=== PATIENT | male | born 1950 | race Caucasian/White ===

== ENCOUNTER 2017-01-08 11:35 | Emergency (ER) | payer MEDICARE ==
[2017-01-08 11:49] VITALS: BP 139/79
[2017-01-08] MEDS ORDERED: methylPREDNISolone 125 MG* 2 ML VIAL IM ONE (11:49)
[2017-01-08] MEDS ORDERED: diPHENhydraMINE PO* 50 MG PO ONE (11:49)
--- NOTE | 2017-01-08 12:16 | UC ---
Skin Complaint HPI - HPI Summary HPI Summary: 66 year old male presents with bee sting on the head and the hand at 1100 and has history of bee allergy in the past he had some swelling in his throat but he did have bee sting 4 mo in the knee and no reaction or breathing concerns. No breathing issues right now. No meds besides topical benadryl which not helping - History of Current Complaint Chief Complaint: UCAllergicReaction Time Seen by Provider: 01/08/17 11:39 Stated Complaint: BEE STING-ALLERGIC Hx Obtained From: Patient, Family/Costume Specialist Onset/Duration: Sudden Onset Skin Exposure Onset/Duration: Minutes Ago Associated Signs & Symptoms: Positive: Negative - Allergy/Home Medications Allergies/Adverse Reactions: Allergies Allergy/AdvReac Type Severity Reaction Status Date / Time Bee Venom Allergy Swelling Verified 01/08/17 11:43 Home Medications: Home Medications Aspirin [Aspirin 81 MG TAB] 81 mg PO DAILY 01/08/17 [History Confirmed 01/08/17] Ezetimibe TAB* [Zetia TAB*] 10 mg PO DAILY 01/08/17 [History Confirmed 01/08/17] Sertraline HCl [Zoloft] 50 mg PO DAILY 01/08/17 [History Confirmed 01/08/17] Review of Systems Skin: Rash All Other Systems Reviewed And Are Negative: Yes PMH/Surg Hx/FS Hx/Imm Hx Previously Healthy: Yes Endocrine History: Dyslipidemia Psychological History: Anxiety - Surgical History Surgical History: Yes Surgery Procedure, Year, and Place: wrist - Social History Occupation: Retired Lives: With Family Alcohol Use: Occasionally Substance Use Type: None Smoking Status (MU): Never Smoked Tobacco Physical Exam Triage Information Reviewed: Yes Appearance: Well-Appearing, No Pain Distress, Well-Nourished Vital Signs: Initial Vital Signs Temp 98.6 F 01/08/17 11:45 Pulse 72 01/08/17 11:45 Resp 16 01/08/17 11:45 BP 139/79 01/08/17 11:45 Pulse Ox 98 01/08/17 11:45 Vital Signs Reviewed: Yes Eye Exam: Normal ENT Exam: Normal Dental Exam: Normal Neck exam: Normal Neck: Positive: 1 Respiratory Exam: Normal Respiratory: Positive: Chest non-tender, Lungs clear, Normal breath sounds, No respiratory distress. Negative: Crackles, Rhonchi, Stridor, Wheezing Cardiovascular Exam: Normal Abdominal Exam: Normal Musculoskeletal Exam: Normal Neurological Exam: Normal Psychological Exam: Normal Skin Exam: Normal Skin: Positive: Other - erythema and indurated red area on the scalp approx 3x4 cm and on the left hang at the base of the thumb approx 2x1 cm no discharge no streaking Course/Dx - Course Course Of Treatment: Benaryl and steroids at this time no acute reaction / no need for epi -- given new script and advised to have some one else drive home he is aware of the risks after taking benadryl . go to ED if any concerns - Diagnoses Provider Diagnoses: bee sting Discharge - Discharge Plan Condition: Good Disposition: HOME Prescriptions: Epinephrine [Epipen 2-Xavier] 0.3 mg IM ONCE PRN #1 inj PRN Reason: Shortness Of Breath Patient Education Materials: Insect Bite or Sting (ED) Additional Instructions: You were given an injection of steroid and benadryl which can make you drowsy. You are advised to get a ride home due to this. If your symptoms worsen then go to the Emergency room
== END 2017-01-08 12:30 | disposition home or self-care (01) ==
LOC: UCCORT 11:35
DX: T63.441A Toxic effect of venom of bees, accidental (unintentional), initial encounter (principal); Y92.9 Unspecified place or not applicable; Z91.030 Bee allergy status; E78.5 Hyperlipidemia, unspecified; F41.9 Anxiety disorder, unspecified; Z79.82 Long term (current) use of aspirin
CPT/HCPCS: 96372; 99202; A9270-GY; G0463; J2930